=== PATIENT | male | born 1980 | race Caucasian/White ===

== ENCOUNTER 2019-06-23 11:10 | Emergency (ER) | payer MEDICAID ==
[~2019-06-23] VITALS: Ht 162.6 cm; Wt 75.0 kg
[2019-06-23] MEDS ORDERED: ACETAMINOPHEN 325 MG TABLET PO ONE (13:15)
[2019-06-23 13:45] VITALS: BP 128/88
== END 2019-06-23 14:15 | disposition home or self-care (01) ==
LOC: EMS 11:22
DX: S82.65XA Nondisplaced fracture of lateral malleolus of left fibula, initial encounter for closed fracture (principal); X50.1XXA Overexertion from prolonged static or awkward postures, initial encounter; Y93.89 Activity, other specified; Y92.89 Other specified places as the place of occurrence of the external cause; Y99.8 Other external cause status
CPT/HCPCS: 29515

== ENCOUNTER 2021-11-29 13:55 | Emergency (ER) | payer MEDICAID ==
[~2021-11-29] VITALS: Ht 160 cm; Wt 79.5 kg
[2021-11-29 14:29] VITALS: BP 158/100
[2021-11-29] MEDS ORDERED: BACITRACIN 0.9 GM PACKET OINTMENT TP ONE (15:15)
[2021-11-29] MEDS ORDERED: POVIDONE-IODINE 10% 15 ML SOLUTION UD TP ONE (15:15)
== END 2021-11-29 15:56 | disposition home or self-care (01) ==
LOC: EMS 13:55
DX: H93.8X1 Other specified disorders of right ear (principal)
CPT/HCPCS: 10160; 69000; 99282; 99284; Z7502; Z7610